=== PATIENT | female | born 1965 | race Caucasian/White ===

== ENCOUNTER 2020-12-02 18:49 | Emergency (ER) | payer MEDICARE, MEDICAID ==
[~2020-12-02] VITALS: Ht 162.6 cm; Wt 62.9 kg
[~2020-12-02 18:49] MED LIST: CITA40TA12 PO; CLON1TAB PO; DOXE100C PO; GABA-827 PO; METF500T17 PO; METH40TA3 PO
[2020-12-02] MEDS ORDERED: ACETAMINOPHEN 500 MG TABLET PO ONE (20:00)
[2020-12-02 20:18] LABS: BASOPHILS % (AUTO) 0 % (0-1); EOSINOPHILS % (AUTO) 0 % (1-7); LYMPHOCYTES % (AUTO) 6 % (22-44); MEAN CORPUSCULAR HEMOGLOBIN 28.5 pg (27.0-34.8); MEAN CORPUSCULAR HGB CONC 33.8 g/dL (32.4-35.8); MEAN PLATELET VOLUME 8.5 fL (7.4-10.4); MONOCYTES % (AUTO) 5 % (2-9); NEUTROPHILS % (AUTO) 88 % (42-75); PLATELET COUNT 232 x10^3/uL (130-400); RED BLOOD COUNT 4.39 x10^6/uL (3.82-5.3); RED CELL DISTRIBUTION WIDTH 13.8 % (9.6-15.2)
[2020-12-02 20:27] LABS: ANION GAP 11 mmol/L (5-15); CHLORIDE 96 mmol/L (98-107)
[2020-12-02 20:32] LABS: ALANINE AMINOTRANSFERASE 18 U/L (12-78); ALKALINE PHOSPHATASE 113 U/L (45-117); BILIRUBIN,TOTAL 0.4 mg/dL (0.2-1.0); CREATININE 1.21 mg/dL (0.55-1.02); TOTAL PROTEIN 8.2 g/dL (6.4-8.2)
[2020-12-02] MEDS ORDERED: ACETAMINOPHEN 500 MG TABLET ONE (22:07)
[2020-12-02] MEDS ORDERED: ONDANSETRON ODT 4 MG ONE (22:20)
[2020-12-02 22:21] LABS: MICROSCOPIC INDICATED
[2020-12-02] MEDS ORDERED: ONDANSETRON ODT 4 MG PO ONE (22:30)
[2020-12-02] MEDS ORDERED: CEFDINIR 300 MG CAPSULE ONE (22:42)
[2020-12-02 22:45] VITALS: BP 117/65
[2020-12-02] MEDS ORDERED: FAMOTIDINE 20 MG TABLET ONE (22:57)
[2020-12-02] MEDS ORDERED: CEFDINIR 300 MG CAPSULE PO ONE (23:00)
[2020-12-02] MEDS ORDERED: FAMOTIDINE 20 MG TABLET PO ONE (23:00)
== END 2020-12-02 23:13 | disposition home or self-care (01) ==
LOC: ED 19:20
DX: N12 Tubulo-interstitial nephritis, not specified as acute or chronic (principal); R11.0 Nausea; F17.200 Nicotine dependence, unspecified, uncomplicated
CPT/HCPCS: 36415; 80053; 81001; 83605; 85025; 87040; 87077; 87086; 87186; 99284; Q0162